=== PATIENT | male | born 1975 | race Caucasian/White ===

== ENCOUNTER → 2016-09-06 | Outpatient (CLI) | payer BC ==
--- NOTE | 2016-09-09 10:31 | XR ---
EXAMINATION TYPE: XR knee complete RT DATE OF EXAM ORDERED: 09/06/2016 12:09 PM HISTORY: [id number] rt knee pain, swelling. COMPARISON: None. FINDINGS: No fracture or dislocation is seen. Joint spaces are maintained. There is a small knee tanya nt effusion. IMPRESSION: 1. NO ACUTE OSSEOUS LESION. 2. SMALL KNEE JOINT EFFUSION.
== END ==
LOC: RADXRYALE 11:53
PROVIDERS: ATTEND Physician Assistant Medical
DX: M25.461 Effusion, right knee (principal)

== ENCOUNTER → 2016-09-24 | Outpatient (CLI) | payer BC ==
--- NOTE | 2016-09-24 13:36 | MR ---
EXAMINATION TYPE: MR knee RT wo con DATE OF EXAM: 09/24/2016 12:59 PM COMPARISON: NONE HISTORY: posterior rt knee pain, swollen rt knee TECHNIQUE: Multiplanar, multiecho imaging of the right knee is performed without IV contrast. FINDINGS: There is only a small amount of joint fluid. This is partially decompressed into the gastro cnemius semimembranosus bursa. There is grade I to II chondromalacia involving the weightbearing surface of the medial femoral condy le. There is no other significant chondromalacia. Both menisci appear intact. Both the anterior and the posterior cruciate ligaments are intact. Both medial and lateral collateral ligament complexes are intact. Iliotibial band inserts normally up on Gerdy's tubercle. The popliteus muscle and tendon are normal. Both quadriceps and patellar tendons are intact. There is no significant swelling in the Hoffa fat sp efrain. IMPRESSION: 1. CHONDROMALACIA DESCRIBED. 2. NO EVIDENCE OF A SIGNIFICANT LIGAMENTOUS OR MENISCAL INJURY. 3. SMALL JOINT EFFUSION, PARTIALLY DECOMPRESSED INTO THE GASTROCNEMIUS SEMIMEMBRANOSUS BURSA.
== END ==
LOC: RADMRIMAIN 12:01
PROVIDERS: ATTEND Physician Assistant Medical
DX: M94.261 Chondromalacia, right knee (principal); M25.461 Effusion, right knee